=== PATIENT | female | born 1990 | race Caucasian/White ===

== ENCOUNTER 2020-06-25 16:50 | Emergency (ER) | payer OTHER ==
[~2020-06-25] VITALS: Ht 160 cm; Wt 72.6 kg
[2020-06-25 17:17] VITALS: BP 125/85
== END 2020-06-25 17:17 | disposition home or self-care (01) ==
LOC: M.ERS 16:50
DX: M79.645 Pain in left finger(s) (principal); W49.04XA Ring or other jewelry causing external constriction, initial encounter; Y93.89 Activity, other specified; Y92.89 Other specified places as the place of occurrence of the external cause; Y99.8 Other external cause status